=== PATIENT | male | born 1940 | race African-American/Black ===

== ENCOUNTER 2016-08-27 09:00 | Day surgery (SDC) | payer OTHER ==
[2016-08-26 10:21] LABS: HEMATOCRIT 20.5 % (42.0-52.0); HEMOGLOBIN 6.8 g/dL (14.0-18.0); MCH 30.4 PG (27-31); MCHC 33.2 g/dL (33-37); MCV 91.5 FL (81-99); MPV 10.1 FL (7.4-10.4); RBC 2.24 XMIL (4.7-6.1)
[2016-08-27] MEDS ORDERED: BENADRYL ONE (09:22)
[2016-08-27] MEDS ORDERED: TYLENOL ONE (09:22)
[2016-08-27] MEDS ORDERED: HEPARIN ONE (09:23)
[2016-08-27] MEDS ORDERED: NS 250 ML ONE (09:23)
[2016-08-27 13:31] VITALS: BP 105/56
== END 2016-08-27 13:30 | disposition home or self-care (01) ==
LOC: OPS 09:00
PROVIDERS: ATTEND Internal Medicine
DX: C34.12 Malignant neoplasm of upper lobe, left bronchus or lung (principal); D63.0 Anemia in neoplastic disease; J44.9 Chronic obstructive pulmonary disease, unspecified; E11.22 Type 2 diabetes mellitus with diabetic chronic kidney disease; I12.9 Hypertensive chronic kidney disease with stage 1 through stage 4 chronic kidney disease, or unspecified chronic kidney disease; E03.9 Hypothyroidism, unspecified; E78.5 Hyperlipidemia, unspecified; M19.90 Unspecified osteoarthritis, unspecified site; Z79.899 Other long term (current) drug therapy; Z79.84 Long term (current) use of oral hypoglycemic drugs; Z79.51 Long term (current) use of inhaled steroids; Z85.46 Personal history of malignant neoplasm of prostate; Z90.5 Acquired absence of kidney; Z96.643 Presence of artificial hip joint, bilateral; N18.3 Chronic kidney disease, stage 3 (moderate); E53.8 Deficiency of other specified B group vitamins
CPT/HCPCS: 36415; 36430; 85027; 86850; 86900; 86901; 86920; J7050; P9016